=== PATIENT | male | born 1980 | race Caucasian/White ===

== ENCOUNTER 2019-12-09 23:39 | Emergency (ER) | payer BC ==
[2019-12-09] MEDS ORDERED: solu-MEDROL 125 MG ONE (23:52)
[2019-12-09] MEDS ORDERED: Pepcid 20 MG ONE (23:52)
[2019-12-09] MEDS ORDERED: solu-MEDROL 125 MG IM ONE (23:57)
[2019-12-09] MEDS ORDERED: Pepcid 20 MG PO ONE (23:58)
--- NOTE | 2019-12-10 00:22 | ERPHSYRPT ---
- History of Present Illness Time Seen by Provider: 12/09/19 23:50 Source: patient Exam Limitations: no limitations Patient Subjective Stated Complaint: . Triage Nursing Assessment: . Physician History: this is 39-year-old diabetic gentleman with hypertension who presents with a history of at least 3 episodes of sudden onset, uncertain etiology, generalized skin rash and hives. Similar episode 3 months ago, then again 2 weeks ago, then again this evening at approximately 1030. Patient took Benadryl 50 mg orally at 10:30 PM. There are no new exposures. There are no new medications. Timing/Duration: today Quality: itchy Severity: moderate Location: generalized Possible Causes: no cause identified Allergies/Adverse Reactions: No Known Drug Allergies Allergy (Unverified 12/10/19 00:03) Home Medications: Aspirin EC 81 mg [Ecotrin 81 mg] 81 mg PO DAILY 12/10/19 [History] Atorvastatin Calcium [Lipitor] 40 mg PO DAILY 12/10/19 [History] Empagliflozin [Jardiance] 25 mg PO DAILY 12/10/19 [History] Valsartan 320 mg PO DAILY 12/10/19 [History] Hx Tetanus, Diphtheria Vaccination/Date Given: No Hx Influenza Vaccination/Date Given: No Hx Pneumococcal Vaccination/Date Given: No Immunizations Up to Date: Yes Travel Risk - International Travel Have you traveled outside of the country in past 3 weeks: No - Coronavirus Screening Are you exhibiting any of the following symptoms?: No Close contact with a COVID-19 positive Pt in past 14-21 Days: No - Review of Systems Constitutional: No Symptoms Eyes: No Symptoms Ears, Nose, & Throat: No Symptoms Respiratory: No Symptoms Cardiac: No Symptoms Abdominal/Gastrointestinal: No Symptoms Genitourinary Symptoms: No Symptoms Musculoskeletal: No Symptoms Skin: Rash Neurological: No Symptoms Psychological: No Symptoms Endocrine: No Symptoms Hematologic/Lymphatic: No Symptoms Immunological/Allergic: No Symptoms All Other Systems: Reviewed and Negative - Past Medical History Pertinent Past Medical History: Yes Neurological History: No Pertinent History ENT History: No Pertinent History Cardiac History: No Pertinent History, Hypertension Respiratory History: No Pertinent History Endocrine Medical History: Diabetes Type I Musculoskeletal History: No Pertinent History GI Medical History: No Pertinent History History: Other Psycho-Social History: No Pertinent History Male Reproductive Disorders: No Pertinent History Other Medical History: Kidney stones - Past Surgical History Past Surgical History: Yes Neuro Surgical History: No Pertinent History Cardiac: No Pertinent History Respiratory: No Pertinent History Gastrointestinal: Hernia Repair Genitourinary: No Pertinent History Musculoskeletal: No Pertinent History Male Surgical History: No Pertinent History Other Surgical History: Broken rt femur with pins and rods - Social History Smoking Status: Current every day smoker How long have you smoked: 22 Exposure to second hand smoke: No Drug Use: none Patient Lives Alone: No - Nursing Vital Signs Nursing Vital Signs: Initial Vital Signs Temperature 97.5 F 12/09/19 23:49 Pulse Rate 70 12/09/19 23:49 Respiratory Rate 20 12/09/19 23:49 Blood Pressure 98/65 12/09/19 23:49 O2 Sat by Pulse Oximetry 99 12/09/19 23:49 Pain Scale Pain Intensity 0 - Physical Exam General Appearance: no apparent distress, alert, anxiety, obese Eye Exam: PERRL/EOMI, eyes nml inspection Ears, Nose, Throat Exam: normal ENT inspection, moist mucous membranes Neck Exam: normal inspection, non-tender, supple, full range of motion Respiratory Exam: normal breath sounds, lungs clear, airway intact, No chest tenderness, No respiratory distress, No wheezing, No stridor Cardiovascular Exam: regular rate/rhythm, normal heart sounds, normal peripheral pulses Gastrointestinal/Abdomen Exam: soft, normal bowel sounds, No tenderness Rectal Exam: not done Back Exam: normal inspection, normal range of motion, No CVA tenderness, No vertebral tenderness Extremity Exam: swelling (Mild swelling of bilateral hands) Neurologic Exam: alert, oriented x 3, cooperative, teacher of the deaf/hard of hearing II-XII nml as tested, normal mood/affect, nml cerebellar function, nml station & gait, sensation nml Skin Exam: rash ([place] flat blotches of rash) Lymphatic Exam: No adenopathy SpO2 Interpretation: normal SpO2: 97 O2 Delivery: Room Air - Course Nursing assessment & vital signs reviewed: Yes Ordered Tests: Medication Summary Discontinued Medications Generic Name Dose Route Start Last Admin Trade Name Freq PRN Reason Stop Dose Admin Famotidine Confirm 12/09/19 23:52 Pepcid 20 Mg Administered 12/09/19 23:53 Dose 40 mg .ROUTE .STK-MED ONE Famotidine 40 mg 12/09/19 23:58 12/09/19 23:59 Pepcid 20 Mg PO 12/09/19 23:59 40 mg STAT ONE Administration Methylprednisolone Sodium Succinate Confirm 12/09/19 23:52 Solu-Medrol 125 Mg Administered 12/09/19 23:53 Dose 125 mg .ROUTE .STK-MED ONE Methylprednisolone Sodium Succinate 125 mg 12/09/19 23:57 12/09/19 23:59 Solu-Medrol 125 Mg IM 12/09/19 23:58 125 mg STAT ONE Administration - Progress Progress: improved Counseled pt/family regarding: diagnosis, need for follow-up - Departure Departure Disposition: Home Clinical Impression: Hives, Allergic reaction Condition: Stable Critical Care Time: No Additional Instructions: Continue Benadryl 25 to 50 mg orally every 8 hours for the next 5 days. Return to the emergency department if symptoms worsen. Follow-up with your primary care physician if symptoms are not worse but are persistent. Prescriptions: Prednisone 10 mg [Deltasone 10 mg] 10 mg PO TID #12 tablet Famotidine 20 mg [Pepcid 20 MG] 20 mg PO DAILY #10 tablet
[2019-12-10 01:14] VITALS: BP 106/81; PULSE 101; O2SAT 96
== END 2019-12-10 01:15 | disposition home or self-care (01) ==
LOC: ED 23:39
DX: L50.9 Urticaria, unspecified (principal); T78.40XA Allergy, unspecified, initial encounter; I10 Essential (primary) hypertension
CPT/HCPCS: 96372; 99283; J2930; A9270-GY